=== PATIENT | female | born 1950 | race African-American/Black ===

== ENCOUNTER 2020-10-21 12:12 | Inpatient (IN) | payer MEDICARE, MEDICAID ==
[~2020-10-21] VITALS: Ht 172.7 cm; Wt 75.3 kg
[2020-10-21] MEDS ORDERED: ALTEPLASE 100MG/VIAL IV ONE (13:03)
[2020-10-21] MEDS ORDERED: ALTEPLASE IV ONE (13:04)
[2020-10-21] MEDS ORDERED: CONTAINER EMPTY IV ONE (13:04)
[2020-10-21] MEDS ORDERED: *NO ASPIRIN X 24 HOURS XX SCH (13:15)
[2020-10-21 13:29] LABS: BASOPHILS % 0.7 % (0.0-2.0); EOSINOPHILS % 2.2 % (0.0-5.0); HEMATOCRIT. 33.5 % (36.0-48.0); HEMOGLOBIN. 11.3 g/dL (12.0-16.0); LYMPHOCYTES % 30.8 % (20.0-50.0); MEAN CORPUSCULAR HEMOGLOBIN 31.3 pg (28.0-32.0); MEAN CORPUSCULAR VOLUME 92.9 fL (81.0-99.0); MONOCYTES % 5.2 % (2.0-8.0); NEUTROPHILS % 61.1 % (40.0-76.0); PLATELET 343 x1000/uL (130-400); RED BLOOD CELL COUNT 3.61 mill/uL (4.2-5.4); RED CELL DISTRIBUTION WIDTH 13.1 % (11.6-14.6)
[2020-10-21 13:35] LABS: CHLORIDE 105 mEq/L (98-107)
[2020-10-21 13:39] LABS: ETHANOL BLOOD < 10 mg/dL
[2020-10-21 13:42] LABS: LDL CHOLESTEROL 81 mg/dL (5-100)
[2020-10-21 13:44] LABS: CREATINE KINASE 145 IU/L (26-192)
[2020-10-21] MEDS ORDERED: SODIUM CHLORIDE 0.9% 1,000 ML IV ONE (14:00)
[2020-10-21 15:19] LABS: PROTHROMBIN TIME 10.6 sec (9.6-11.0)
[2020-10-21] MEDS ORDERED: NITROGLYCERIN 0.4MG TABLET SL SL PRN (16:30)
[2020-10-21] MEDS ORDERED: CLONIDINE 0.1MG TABLET PO PRN (16:30)
[2020-10-21] MEDS ORDERED: ACETAMINOPHEN 325MG TABLET PO PRN ×2 (16:30)
[2020-10-21] MEDS ORDERED: DOCUSATE SODIUM 100MG CAPSULE PO PRN (16:30)
[2020-10-21] MEDS ORDERED: MAGNESIUM/ALUMINUM HYDROXIDE/SIMETHICONE 30ML UDC PO PRN (16:30)
[2020-10-21] MEDS ORDERED: ONDANSETRON HCL 4MG/2ML INJ IV PRN (16:30)
[2020-10-21] MEDS ORDERED: IPRATROPIUM/ALBUTEROL 0.5-3(2.5)MG/3ML NEB NEB PRN (16:30)
[2020-10-21] MEDS ORDERED: GUAIFENESIN 200MG/10ML SUGAR FREE UDC PO PRN (16:30)
[2020-10-21] MEDS: ENOXAPARIN 40MG/0.4ML SYR SUBCUT SCH ×2 (18:00→22:07)
[2020-10-21] MEDS ORDERED: DEXTROSE 50% WATER 50ML SYRINGE IV PRN (19:30)
[2020-10-21 19:32] LABS: FOLIC ACID (FOLATE) SERUM >20 ng/mL ng/mL (>5.38)
[2020-10-21 19:44] LABS: VITAMIN B12 SERUM 510 pg/mL (211-911)
[2020-10-21 20:00] VITALS: BP 164/77
[2020-10-21] MEDS: BLOOD SUGAR DIAGNOSTIC STRIP TEST SCH (21:00)
[2020-10-21] MEDS: INSULIN LISPRO 100 UNITS/ML SUBCUT SCH (21:00)
[2020-10-21] MEDS ORDERED: ZOLPIDEM TARTRATE 5MG TABLET PO PRN (21:00)
[2020-10-21] MEDS: ASCORBIC ACID 500 MG TABLET PO SCH (22:07)
[2020-10-21] MEDS: FAMOTIDINE 20MG TABLET PO SCH (22:08)
[2020-10-21] MEDS: CLOPIDOGREL 75MG TABLET PO SCH (22:08)
[2020-10-21] MEDS: ATORVASTATIN CALCIUM 10MG TABLET PO SCH (22:08)
[2020-10-21] MEDS: METOPROLOL TARTRATE 25MG TABLET PO SCH (22:09)
[2020-10-22] VITALS: BP 142/76
[2020-10-22 00:53] LABS: CREATINE KINASE 68 IU/L (26-192)
[2020-10-22 00:54] LABS: CREATINE KINASE MB FRACTION < 1.0 ng/mL (0.5-3.6)
[2020-10-22 04:00] VITALS: BP 122/57
[2020-10-22] MEDS ORDERED: CHLO25TA2 PO (04:42)
[2020-10-22] MEDS ORDERED: ATOR10TA69 PO (04:42)
[2020-10-22] MEDS ORDERED: LOSA25TA26 PO (04:42)
[2020-10-22] MEDS ORDERED: METF500S7 PO (04:42)
[2020-10-22] MEDS ORDERED: AMLO2.5T45 PO (04:43)
[2020-10-22] MEDS ORDERED: METF-414 PO (04:45)
[2020-10-22 06:16] LABS: BASOPHILS % 0.6 % (0.0-2.0); EOSINOPHILS % 2.3 % (0.0-5.0); HEMATOCRIT. 28.5 % (36.0-48.0); HEMOGLOBIN. 9.8 g/dL (12.0-16.0); LYMPHOCYTES % 38.2 % (20.0-50.0); MEAN CORPUSCULAR HEMOGLOBIN 31.8 pg (28.0-32.0); MEAN CORPUSCULAR VOLUME 92.1 fL (81.0-99.0); MEAN PLATELET VOLUME 7.6 fl (7.4-10.4); MONOCYTES % 6.6 % (2.0-8.0); NEUTROPHILS % 52.3 % (40.0-76.0); PLATELET 337 x1000/uL (130-400); RED BLOOD CELL COUNT 3.09 mill/uL (4.2-5.4); RED CELL DISTRIBUTION WIDTH 12.7 % (11.6-14.6)
[2020-10-22] MEDS: BLOOD SUGAR DIAGNOSTIC STRIP TEST SCH ×4 (06:18→21:04)
[2020-10-22] MEDS: INSULIN LISPRO 100 UNITS/ML SUBCUT SCH ×4 (06:18→21:07)
[2020-10-22 06:25] LABS: CHLORIDE 106 mEq/L (98-107)
[2020-10-22 06:35] LABS: CREATINE KINASE 71 IU/L (26-192)
[2020-10-22 06:37] LABS: CREATINE KINASE MB FRACTION < 1.0 ng/mL (0.5-3.6)
[2020-10-22 08:00] VITALS: BP 136/87
[2020-10-22] MEDS: ZINC SULFATE 220 MG ( 50 ) CAPSULE PO SCH (08:53)
[2020-10-22] MEDS: METOPROLOL TARTRATE 25MG TABLET PO SCH ×2 (08:53→21:04)
[2020-10-22] MEDS: ASCORBIC ACID 500 MG TABLET PO SCH ×2 (08:53→21:04)
[2020-10-22] MEDS: CHOLECALCIFEROL (D3) 1000 UNIT TABLET PO SCH (08:53)
[2020-10-22] MEDS: CLOPIDOGREL 75MG TABLET PO SCH (08:53)
[2020-10-22 12:00] VITALS: BP 127/51
[2020-10-22 16:00] VITALS: BP 138/60
[2020-10-22] MEDS: ENOXAPARIN 40MG/0.4ML SYR SUBCUT SCH (18:38)
[2020-10-22 20:00] VITALS: BP 122/65
[2020-10-22] MEDS: FAMOTIDINE 20MG TABLET PO SCH (21:03)
[2020-10-22] MEDS: ATORVASTATIN CALCIUM 10MG TABLET PO SCH (21:04)
[2020-10-23] VITALS: BP 111/77
[2020-10-23 04:00] VITALS: BP 105/68
[2020-10-23] MEDS: BLOOD SUGAR DIAGNOSTIC STRIP TEST SCH ×4 (06:58→21:30)
[2020-10-23] MEDS: INSULIN LISPRO 100 UNITS/ML SUBCUT SCH ×4 (06:59→21:00)
[2020-10-23 08:00] VITALS: BP 154/59
[2020-10-23] MEDS: ASCORBIC ACID 500 MG TABLET PO SCH ×2 (08:49→21:28)
[2020-10-23] MEDS: METOPROLOL TARTRATE 25MG TABLET PO SCH ×2 (08:49→21:29)
[2020-10-23] MEDS: ZINC SULFATE 220 MG ( 50 ) CAPSULE PO SCH (08:49)
[2020-10-23] MEDS: CLOPIDOGREL 75MG TABLET PO SCH (08:49)
[2020-10-23] MEDS: CHOLECALCIFEROL (D3) 1000 UNIT TABLET PO SCH (08:49)
[2020-10-23 12:00] VITALS: BP 158/69
[2020-10-23 16:00] VITALS: BP 165/70
[2020-10-23] MEDS: ENOXAPARIN 40MG/0.4ML SYR SUBCUT SCH (17:30)
[2020-10-23 20:00] VITALS: BP 151/60
[2020-10-23] MEDS: FAMOTIDINE 20MG TABLET PO SCH (21:28)
[2020-10-23] MEDS: ATORVASTATIN CALCIUM 10MG TABLET PO SCH (21:29)
[2020-10-24] VITALS: BP 154/62
[2020-10-24 04:00] VITALS: BP 154/59
[2020-10-24] MEDS: BLOOD SUGAR DIAGNOSTIC STRIP TEST SCH ×2 (06:28→12:01)
[2020-10-24] MEDS: INSULIN LISPRO 100 UNITS/ML SUBCUT SCH ×2 (07:15→12:23)
[2020-10-24 08:00] VITALS: BP 166/67
[2020-10-24] MEDS: METOPROLOL TARTRATE 25MG TABLET PO SCH (09:00)
[2020-10-24] MEDS: CLOPIDOGREL 75MG TABLET PO SCH (10:35)
[2020-10-24] MEDS: ASCORBIC ACID 500 MG TABLET PO SCH (10:35)
[2020-10-24] MEDS: ZINC SULFATE 220 MG ( 50 ) CAPSULE PO SCH (10:35)
[2020-10-24] MEDS: CHOLECALCIFEROL (D3) 1000 UNIT TABLET PO SCH (10:35)
[2020-10-24 11:44] VITALS: BP 140/77
[2020-10-24 12:00] VITALS: BP 140/77
== END 2020-10-24 13:50 | disposition home health service (06) | DRG 92 ==
LOC: ER 12:12 → 5WST 15:34 → EDBEDREQTM 15:38 → EDBEDREQ 15:38 → SUPCPDRO 16:24 → ENRESERV 16:25
PROVIDERS: ADMIT Internal Medicine; ATTEND Internal Medicine
DX: G92 Toxic encephalopathy (principal); R47.01 Aphasia; I69.351 Hemiplegia and hemiparesis following cerebral infarction affecting right dominant side; I10 Essential (primary) hypertension; E11.9 Type 2 diabetes mellitus without complications; Z79.4 Long term (current) use of insulin; Z82.49 Family history of ischemic heart disease and other diseases of the circulatory system; Z79.899 Other long term (current) drug therapy
CPT/HCPCS: 36415; 70551; 71045; 80053; 80061; 80320; 82550; 82553; 82607; 82746; 82962; 83036; 83540; 83550; 83615; 83721; 83735; 83880; 84145; 84484; 85025; 85379; 86850; 86900; 93005; 93970; 97162; 97166; 99291; J1650; J1815; J2997; J7030; J7060; G0480